=== PATIENT | male | born 1980 ===

== ENCOUNTER 2016-10-27 21:17 | Emergency (ER) | payer OTHER ==
[2016-10-27 21:23] VITALS: PULSE 72; RESP 18; TEMP 98; O2SAT 99
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
[2016-10-27 22:19] VITALS: BP 118/69
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
== END 2016-10-27 22:39 | disposition home or self-care (01) ==
LOC: H.ER 21:17 → MERGE 21:17 → H.ER 22:39
DX: M54.5 Low back pain (principal); V43.52XA Car driver injured in collision with other type car in traffic accident, initial encounter; Y92.410 Unspecified street and highway as the place of occurrence of the external cause